=== PATIENT | female | born 1990 | race African-American/Black ===

== ENCOUNTER 2023-06-26 20:21 | Emergency (ER) | payer OTHER ==
[~2023-06-26] VITALS: Ht 167.6 cm; Wt 61.2 kg
[2023-06-26 22:26] VITALS: BP 118/60; PULSE 87; RESP 18; O2SAT 99
== END 2023-06-26 22:45 | disposition home or self-care (01) ==
LOC: EDH 20:21
DX: S66.812A Strain of other specified muscles, fascia and tendons at wrist and hand level, left hand, initial encounter (principal); Z98.890 Other specified postprocedural states; Z88.5 Allergy status to narcotic agent; Z88.8 Allergy status to other drugs, medicaments and biological substances; X58.XXXA Exposure to other specified factors, initial encounter; Y93.89 Activity, other specified; Y92.89 Other specified places as the place of occurrence of the external cause; Y99.8 Other external cause status
CPT/HCPCS: 73120